=== PATIENT | male | born 1970 | race Caucasian/White ===

== ENCOUNTER 2021-11-22 20:49 | Emergency (ER) | payer OTHER, BC | END 2021-11-22 22:00 | disposition home or self-care (01) | LOC: VM.ED 20:49 | DX: S40.011A Contusion of right shoulder, initial encounter (principal); V49.10XA Passenger injured in collision with unspecified motor vehicles in nontraffic accident, initial encounter; Y92.410 Unspecified street and highway as the place of occurrence of the external cause | CPT/HCPCS: 71046; 73030-RT; 99283; 99284 ==